=== PATIENT | male | born 1970 | race Asian ===

== ENCOUNTER 2023-12-01 12:05 | Outpatient (CLI) | payer MEDICAID ==
[~2023-12-01 12:05] MED LIST: CALC625T68 PO; HAL1T PO; HALO5TAB PO; IBUP-1984 PO; OLAN10TA3 PO; TOPI50TA PO; TRAZ-251 PO; TRAZ-91 PO
== END 2023-12-01 23:59 | disposition home or self-care (01) ==
LOC: RAD 12:05
PROVIDERS: ATTEND General Practice
DX: Z12.2 Encounter for screening for malignant neoplasm of respiratory organs (principal); R91.1 Solitary pulmonary nodule; J98.4 Other disorders of lung; F17.210 Nicotine dependence, cigarettes, uncomplicated
CPT/HCPCS: 71271

== ENCOUNTER 2024-02-11 06:48 | Day surgery (SDC) | payer MEDICAID ==
[~2024-02-11] VITALS: Ht 160 cm; Wt 69.8 kg
[2024-02-11] MEDS ORDERED: normal saline 1000ml 1,000 ML IV SCH (07:05)
[2024-02-11 07:45] VITALS: BP 125/70; PULSE 60; RESP 16; TEMP 97.5; O2SAT 98
[2024-02-11] MEDS ORDERED: ATOR10TA70 PO (07:54)
[2024-02-11] MEDS ORDERED: OLAN5TAB75 (07:54)
[2024-02-11] MEDS ORDERED: OLAN15TA35 PO (07:54)
[2024-02-11] MEDS ORDERED: TRAZ150T78 PO (07:54)
[2024-02-11 08:09] LABS: BASOPHILS # (AUTO) 0.1 X10'3 (0-0.2); BASOPHILS % (AUTO) 0.6 % (0-1); EOSINOPHILS # (AUTO) 0.1 X10'3 (0-0.9); EOSINOPHILS % (AUTO) 0.9 % (0-6); HEMATOCRIT 45.4 % (42.0-52.0); HEMOGLOBIN 15.1 g/dl (14.0-17.9); LYMPHOCYTES % (AUTO) 23.3 % (21-51); MEAN CORPUSCULAR HEMOGLOBIN 29.5 PG (27.0-31.0); MEAN CORPUSCULAR HGB CONC 33.4 g/dL (33.0-36.5); MEAN CORPUSCULAR VOLUME 88.5 FL (78-98); MEAN PLATELET VOLUME 8.2 FL (7.4-10.4); MONOCYTES # (AUTO) 0.7 X10'3 (0-0.9); MONOCYTES % (AUTO) 8.5 % (2-12); NEUTROPHILS # (AUTO) 5.7 X10'3 (1.8-7.7); NEUTROPHILS % (AUTO) 66.7 % (42-75); PLATELET COUNT 229 X10'3 (140-440); RED BLOOD COUNT 5.13 X10'6 (4.70-6.10); RED CELL DISTRIBUTION WIDTH 13.5 % (11.5-14.5); WHITE BLOOD COUNT 8.6 X10'3 (4.5-11.0)
[2024-02-11 08:16] LABS: APTT 31 SECONDS (22-32); PROTHROMBIN TIME 10.8 SECONDS (9.0-12.0)
== END 2024-02-11 08:45 | disposition home or self-care (01) ==
LOC: SSTAY O 06:48
PROVIDERS: ATTEND Radiology Diagnostic Radiology
DX: R91.1 Solitary pulmonary nodule (principal); Z53.8 Procedure and treatment not carried out for other reasons; E78.5 Hyperlipidemia, unspecified
CPT/HCPCS: 36415; 85025; 85610; 85730; J7030

== ENCOUNTER 2024-05-09 07:48 | Emergency (ER) | payer MEDICAID ==
[~2024-05-09] VITALS: Ht 170.2 cm; Wt 68.2 kg
[~2024-05-09 07:48] MED LIST changes: +ATOR10TA70 PO; -CALC625T68 PO; -HAL1T PO; -HALO5TAB PO; -IBUP-1984 PO; -OLAN10TA3 PO; +OLAN15TA35 PO; +OLAN5TAB75; -TOPI50TA PO; -TRAZ-251 PO; -TRAZ-91 PO; +TRAZ150T78 PO
[2024-05-09] MEDS: OLANZapine **IM** 10 mg inj. IM ONE (11:10)
[2024-05-09 13:23] LABS: BASOPHILS % (AUTO) 0.3 % (0-1); EOSINOPHILS # (AUTO) 0.1 X10'3 (0-0.9); EOSINOPHILS % (AUTO) 0.6 % (0-6); HEMATOCRIT 44.9 % (42.0-52.0); HEMOGLOBIN 15.1 g/dl (14.0-17.9); LYMPHOCYTES % (AUTO) 24.4 % (21-51); MEAN CORPUSCULAR HEMOGLOBIN 29.3 PG (27.0-31.0); MEAN CORPUSCULAR HGB CONC 33.8 g/dL (33.0-36.5); MEAN CORPUSCULAR VOLUME 86.7 FL (78-98); MEAN PLATELET VOLUME 7.6 FL (7.4-10.4); MONOCYTES % (AUTO) 8.2 % (2-12); NEUTROPHILS # (AUTO) 8.1 X10'3 (1.8-7.7); NEUTROPHILS % (AUTO) 66.5 % (42-75); PLATELET COUNT 264 X10'3 (140-440); RED BLOOD COUNT 5.17 X10'6 (4.70-6.10); RED CELL DISTRIBUTION WIDTH 12.5 % (11.5-14.5); WHITE BLOOD COUNT 12.3 X10'3 (4.5-11.0)
[2024-05-09 13:33] LABS: ALANINE AMINOTRANSFERASE 22 U/L (12-78); ALBUMIN 3.9 G/DL (3.4-5.0); ALKALINE PHOSPHATASE 62 IU/L (46-116); ANION GAP 5 (8-16); ASPARTATE AMINO TRANSFERASE 22 U/L (10-37); BILIRUBIN,TOTAL 0.6 MG/DL (0.1-1.0); BLOOD UREA NITROGEN 13 MG/DL (7-18); BUN/CREATININE RATIO 10.8 (10.0-20.0); CALCIUM 8.8 MG/DL (8.5-10.1); CHLORIDE 107 MMOL/L (99-107); GLUCOSE 88 MG/DL (70-104); POTASSIUM 3.8 MMOL/L (3.5-5.1); SODIUM 143 MMOL/L (135-145); TOTAL CARBON DIOXIDE 31.1 MMOL/L (24-32); TOTAL PROTEIN 7.8 G/DL (6.4-8.2); eCRCL 65 ML/MIN; eGFR 63 ML/MIN
[2024-05-09 13:42] LABS: ETHANOL < 10 MG/DL (<10); THYROID STIMULATING HORMONE 1.66 ulU/ml (0.34-4.50)
[2024-05-09 16:40] LABS: BILIRUBIN,URINE NEGATIVE (Neg); CLARITY,URINE SLIGHTLY CLOUDY (Clear); COLOR,URINE YELLOW (Yellow); GLUCOSE, URINE NEGATIVE (Neg); KETONES,URINE TRACE mg/dl (Neg); LEUKOCYTE ESTERASE ,URINE NEGATIVE (Neg); NITRITES, URINE NEGATIVE (Neg); OCCULT BLOOD,URINE NEGATIVE (Neg); PROTEIN,URINE NEGATIVE (Neg); UROBILINOGEN,URINE 0.2 E.U/dL (0.2-1.0)
[2024-05-09 16:41] LABS: UA COLLECTION TYPE CLN CATCH MIDSTREAM
[2024-05-09 16:44] LABS: URINE AMPHETAMINE SCREEN NEGATIVE (Neg); URINE BARBITUATE SCREEN NEGATIVE (Neg); URINE BENZODIAZEPINES SCREEN NEGATIVE (Neg); URINE CANNABINOID SCREEN POSITIVE (Neg); URINE COCAINE SCREEN NEGATIVE (Neg); URINE METHADONE SCREEN NEGATIVE (Neg); URINE OPIATE SCREEN NEGATIVE (Neg); URINE PHENCYCLIDINE SCREEN NEGATIVE (Neg)
[2024-05-09 16:48] LABS: AMORPHOUS URATES 1+; BACTERIA,URINE FEW /HPF (Neg); MUCUS STRANDS NONE SEEN /LPF (Neg); RBC,URINE 0-2 /HPF (0-2); SQUAMOUS EPITHELIAL CELL,UR FEW /LPF (FEW); WBC,URINE NONE SEEN /HPF (0-4)
[2024-05-09] MEDS: haloperidol lactate 5mg/ml inj IM ONE (17:49)
[2024-05-09] MEDS: LORazepam 2 mg/ml vial IM ONE (17:49)
[2024-05-09] MEDS: diphenhydrAMINE 50 mg/ml inj IM ONE (17:50)
[2024-05-09] MEDS: olanzapine 10mg tablet PO SCH (21:00)
[2024-05-09] MEDS: traZODone 150mg tablet PO SCH (21:00)
[2024-05-10] MEDS: atorvastatin 10mg tablet PO SCH (08:28)
[2024-05-10] MEDS: OLANZAPINE 5 MG TABLET PO PRN (08:28)
[2024-05-10] MEDS: LORazepam 2 mg/ml vial IM ONE (12:48)
[2024-05-10] MEDS: haloperidol lactate 5mg/ml inj IM ONE (12:48)
[2024-05-10] MEDS: diphenhydrAMINE 50 mg/ml inj IM ONE (12:49)
[2024-05-11] MEDS: LORazepam 2 mg/ml vial IM ONE (05:22)
[2024-05-11] MEDS: diphenhydrAMINE 50 mg/ml inj IM ONE (05:22)
[2024-05-11] MEDS ORDERED: diphenhydrAMINE 50 mg/ml inj IM PRN (12:15)
[2024-05-11] MEDS ORDERED: haloperidol lactate 5mg/ml inj IM PRN (12:15)
[2024-05-11] MEDS ORDERED: LORazepam 2 mg/ml vial IM PRN (12:15)
[2024-05-11 14:53] VITALS: BP 118/82; PULSE 72; RESP 16; TEMP 97.9; O2SAT 98
== END 2024-05-11 14:55 | disposition home or self-care (01) ==
LOC: ER 07:49
DX: F20.9 Schizophrenia, unspecified (principal); R41.82 Altered mental status, unspecified; Z79.899 Other long term (current) drug therapy; Z59.00 Homelessness unspecified; Z56.0 Unemployment, unspecified; Z20.822 Contact with and (suspected) exposure to COVID-19
CPT/HCPCS: 36415; 70450; 80053; 80305; 80320; 81001; 84443; 85025; 87811; 96372; 99285; J1200; J1630; J2060; J3490; A4421

== ENCOUNTER 2024-07-04 09:30 | Emergency (ER) | payer MEDICAID ==
[~2024-07-04] VITALS: Ht 167.6 cm; Wt 71.4 kg
[~2024-07-04 09:30] MED LIST changes: -OLAN15TA35 PO; +OLAN15TA97 PO
[2024-07-04 09:33] VITALS: BP 124/78; PULSE 89; RESP 18; O2SAT 98
[2024-07-04 10:24] VITALS: TEMP 98.1
== END 2024-07-04 10:26 | disposition home or self-care (01) ==
LOC: ER 09:30
DX: Z93.3 Colostomy status (principal); Z76.0 Encounter for issue of repeat prescription; I10 Essential (primary) hypertension; E11.9 Type 2 diabetes mellitus without complications; F20.9 Schizophrenia, unspecified; Z90.49 Acquired absence of other specified parts of digestive tract; Z91.148 Patient's other noncompliance with medication regimen for other reason
CPT/HCPCS: 99281; A4398; A4421

== ENCOUNTER 2025-01-22 13:31 | Emergency (ER) | payer MEDICAID ==
[~2025-01-22] VITALS: Ht 172.7 cm; Wt 54.0 kg
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
[2025-01-22 15:07] LABS: MEAN PLATELET VOLUME 8.1 FL (7.4-10.4); RED CELL DISTRIBUTION WIDTH 12.7 % (11.5-14.5)
[2025-01-22 15:15] LABS: CREATININE 1.07 MG/DL (0.60-1.10); ETHANOL < 10 MG/DL (<10); TOTAL CARBON DIOXIDE 24.4 MMOL/L (24-32); eCRCL 59 ML/MIN; eGFR 71 ML/MIN
[2025-01-22] MEDS ORDERED: iohexol 300mg/ml 100ml inj. ONE (15:22)
--- NOTE | 2025-01-22 16:28 | RADIOLOGY REPORT ---
Exam: CT CT ABDOMEN PELVIS W/ IV CONTRAST History: LLQ Abd Pain COMPARISON: None Technique: Multidetector spiral CT of the abdomen and pelvis was performed from lung bases to pubic symphysis. Intravenous contrast was administered during this examination. Portal venous imaging was obtained. Axial, coronal and sagittal multiplanar reformats were performed by the technologist on a separate workstation. Radiation Dose : Abdomen/Pelvis: CTDIvol 7 mGy, DLP 362 mGy*cm. CONTRAST: Type of contrast: Omni 300 Contrast injected: 100 mL Findings: Lung Bases: Mild airspace disease in the visualized left lower lung. Liver: The liver is normal in size. No focal lesions. Normal hepatic vascular enhancement. Gallbladder and biliary Tree: Unremarkable Spleen: Unremarkable Pancreas: The pancreas is normal in appearance without focal lesions or abnormal enhancement. Adrenal Glands: Unremarkable Kidneys: Subcentimeter left renal cyst. No hydronephrosis. Bladder: Unremarkable Bowel: The stomach is grossly normal in appearance. Postsurgical changes in the bowel with a right lo wer quadrant colostomy. Round radiopaque density in the rectum could represent retained foreign body. The appendix is not visualized; however, no secondary findings of acute appendicitis identified. Ascites: Absent Lymphadenopathy: No mesenteric, retroperitoneal or periportal lymphadenopathy. Abdominal wall and Mesentery: Right lower quadrant colostomy as above. Vasculature: The visualized abdominal aorta is normal in size and caliber. Abdominal and pelvic vess els demonstrate normal enhancement. Pelvic Organs: Unremarkable Musculoskeletal: No aggressive focal bony lesions, acute fractures or dislocation. IMPRESSION: 1. No acute abdominal or pelvic finding. Round radiopaque foreign body in the rectum. Postsurgical ch anges with a right lower quadrant colostomy. Subcentimeter left renal cyst. Mild airspace disease in the visualized left lower lung. Consider dedicated chest CT. Radiation optimization: All CT scans at this facility use at least one of these dose optimization wali hniques: Automated exposure control mA and/or kV adjustment per patient size (includes targeted exams where dose is matched to clinical indication) or iterative reconstruction. HS:Y
[2025-01-22 17:50] LABS: LEUKOCYTE ESTERASE ,URINE NEGATIVE (Neg); NITRITES, URINE NEGATIVE (Neg); OCCULT BLOOD,URINE NEGATIVE (Neg)
[2025-01-22 17:54] LABS: UA COLLECTION TYPE URINAL
[2025-01-22 17:58] LABS: URINE AMPHETAMINE SCREEN POSITIVE (Neg); URINE BARBITUATE SCREEN NEGATIVE (Neg); URINE BENZODIAZEPINES SCREEN NEGATIVE (Neg); URINE COCAINE SCREEN NEGATIVE (Neg); URINE METHADONE SCREEN NEGATIVE (Neg); URINE OPIATE SCREEN NEGATIVE (Neg); URINE PHENCYCLIDINE SCREEN NEGATIVE (Neg)
[2025-01-22] MEDS ORDERED: UNABLE TO OBTAIN (18:05)
[2025-01-22] MEDS: haloperidol lactate 5mg/ml inj IM ONE (23:27)
[2025-01-23] MEDS: OLANZapine 5mg rapidly disint. tablet PO ONE (18:18)
[2025-01-23] MEDS: nicotine 21mg patch - 24 hr TD ONE (18:18)
[2025-01-24] MEDS: OLANZAPINE 5 MG TABLET PO PRN (08:39)
[2025-01-24] MEDS ORDERED: CHLO10TA18 PO (13:43)
[2025-01-24] MEDS: OLANZAPINE 5 MG TABLET PO SCH ×2 (14:37→20:08)
[2025-01-24] MEDS: nicotine 21mg patch - 24 hr TD ONE (18:45)
[2025-01-25 15:02] VITALS: BP 110/73; PULSE 83; RESP 18; TEMP 97.4; O2SAT 98
== END 2025-01-25 14:35 | disposition home or self-care (01) ==
LOC: ER 13:31
DX: F20.0 Paranoid schizophrenia (principal); Z73.6 Limitation of activities due to disability; Z79.899 Other long term (current) drug therapy; Z56.0 Unemployment, unspecified; Z59.00 Homelessness unspecified; Z90.49 Acquired absence of other specified parts of digestive tract
CPT/HCPCS: 36415; 74177; 80053; 80305; 80320; 81003; 83690; 84443; 85025; 87811; 96372; 99285; J1200; J1630; J2060; Q9967; Q0161

== ENCOUNTER 2025-02-06 08:00 | Emergency (ER) | payer MEDICAID ==
[~2025-02-06] VITALS: Ht 167.6 cm; Wt 66.0 kg
[~2025-02-06 08:00] MED LIST changes: +CHLO10TA18 PO
[2025-02-06 08:08] VITALS: BP 116/68; PULSE 98; RESP 16; TEMP 97.1; O2SAT 96
--- NOTE | 2025-02-06 09:32 | Physician Documentation ---
History of Present Illness ~ General Chief Complaint: See Chief Complaint Stated Complaint: COLOSAMY BAG ISSUE Time Seen by MD: 09:29 Primary Medical Doctor: feliz valle History of Present Illness Initial Comments patient here for colostomy supplies. no issues or complaints Medication Reconciliation Allergies: Coded Allergies: No Known Allergies (Unverified , 01/22/25) Scheduled Atorvastatin Calcium (Atorvastatin Calcium), 1 TAB PO DAILY, (Reported) Chlorpromazine Hcl* (Thorazine*), 2.5 TAB PO DAILY, (Reported) Olanzapine (Olanzapine), 1 TAB PO HS, (Reported) Trazodone Hcl (Trazodone Hcl), 1 TAB PO HS, (Reported) Scheduled PRN Olanzapine (Olanzapine), 1 TAB TID PRN for for anxiety/agitation, (Reported) Past Medical History Past Medical History: *GI/HEPATOBILIARY*, Diverticulitis, Schizophrenia Past Surgical History: colectomy, other Other Past Surgical History: colostomy Alcohol Use: None Drug Use: none Lives In: Homeless Occupation: unemployed Physical Exam Physical Exam Vital Signs: Temperature: 97.1, Heart Rate: 98, Respiratory Rate: 16, BP: 116/68, Pulse Oximetry: 96, Weight: 66.000 Oxygen Flow Rate: 0 General Appearance: no apparent distress Gastrointestinal: normal palpation Neurologic: oriented x4 Progress Results/Orders Reviewed/noted all lab results: Yes Results/Orders Vital Signs 02/06/25 08:08 Temp 97.1 Pulse 98 Resp 16 B/P (MAP) 116/68 Pulse Ox 96 O2 Flow Rate 0 Medical Decision Making Additional info obtained from: old records Findings 2013 operative report Departure Disposition: HOME / SELF CARE / HOMELESS Impression: Primary Impression: Colostomy care Referrals: NO PRIMARY CARE PROVIDER (PCP) Signature Scribe Signature: na Attestation: YOANA Briscoe MD Feb 06, 2025 09:32
== END 2025-02-06 09:30 | disposition home or self-care (01) ==
LOC: ER 08:01
DX: Z43.3 Encounter for attention to colostomy (principal); F20.9 Schizophrenia, unspecified; Z90.49 Acquired absence of other specified parts of digestive tract
CPT/HCPCS: 99281; A4421

== ENCOUNTER 2025-02-09 00:15 | Emergency (ER) | payer MEDICAID ==
[~2025-02-09] VITALS: Ht 167.6 cm; Wt 55.6 kg
[2025-02-09 00:23] VITALS: BP 135/95; PULSE 110; RESP 16; TEMP 98.2; O2SAT 97
--- NOTE | 2025-02-09 00:46 | Physician Documentation ---
History of Present Illness ~ General Chief Complaint: General Stated Complaint: OSTOMY COMPLICATIONS Time Seen by MD: 00:45 Primary Medical Doctor: feliz valle History of Present Illness Initial Comments Patient presents to the emergency room for problems with his colostomy bag. The adhesive is not adhering to his abdomen very well. Stoma is functioning n ormally. Medication Reconciliation Allergies: Coded Allergies: No Known Allergies (Unverified , 01/22/25) Scheduled Atorvastatin Calcium (Atorvastatin Calcium), 1 TAB PO DAILY, (Reported) Chlorpromazine Hcl* (Thorazine*), 2.5 TAB PO DAILY, (Reported) Olanzapine (Olanzapine), 1 TAB PO HS, (Reported) Trazodone Hcl (Trazodone Hcl), 1 TAB PO HS, (Reported) Scheduled PRN Olanzapine (Olanzapine), 1 TAB TID PRN for for anxiety/agitation, (Reported) Past Medical History Past Medical History: *GI/HEPATOBILIARY*, Diverticulitis, Schizophrenia Past Surgical History: colectomy, other Other Past Surgical History: colostomy Alcohol Use: None Drug Use: none Lives In: Homeless Occupation: unemployed Review of Systems ROS All review of systems negative except as per HPI Physical Exam Physical Exam Vital Signs: Temperature: 98.2, Source: Temporal, Heart Rate: 110, Respiratory Rate: 16, BP: 135/95, Pulse Oximetry: 97, Weight: 55.600 Oxygen Flow Rate: 0 Physical Exam General: Patient is awake, alert, oriented x4 in no acute distress Eyes: Conjunctival normal. EOMI. PERRL. ENT: Mucous membranes moist. Neck: Supple, trachea is midline. Chest: Clear to auscultation bilaterally without rales, rhonchi, or wheezes. There is no accessory muscle use or retractions. Cardiac: RRR without murmurs, gallops, or rubs. Abd: Soft, nondistended, nontender, ostomy noted in right-sided abdomen func tioning normally. Colostomy bag having problems that he is in to the top left side. Progress Results/Orders Results/Orders Vital Signs 02/09/25 00:23 Temp 98.2 Pulse 110 Resp 16 B/P (MAP) 135/95 Pulse Ox 97 O2 Flow Rate 0 Medical Decision Making Findings Patient presents to the emergency room for colostomy supplies. He had not feel emergent labs or imaging is necessary Departure Disposition: 01 HOME / SELF CARE / HOMELESS Impression: Primary Impression: Colostomy care Condition: Stable Discharge Instructions: Colostomy Home Guide, Adult Referrals: NO PRIMARY CARE PROVIDER (PCP) Education Educated: Patient Signature Scribe Signature: No scribe Attestation: The note accurately reflects work and decisions made by me.Billy Lao MD 02/09/25 00:51 BILLY LAO MD Feb 09, 2025 00:46
== END 2025-02-09 01:16 | disposition home or self-care (01) ==
LOC: ER 00:16
DX: Z93.3 Colostomy status (principal); F20.9 Schizophrenia, unspecified; Z90.49 Acquired absence of other specified parts of digestive tract; Z79.899 Other long term (current) drug therapy; Z56.0 Unemployment, unspecified; Z59.00 Homelessness unspecified
CPT/HCPCS: 99281; A4371; A4421

== ENCOUNTER 2025-05-24 23:55 | Emergency (ER) | payer MEDICAID ==
[~2025-05-24] VITALS: Ht 170.2 cm; Wt 68.2 kg
--- NOTE | 2025-05-25 01:07 | Physician Documentation ---
History of Present Illness ~ General Chief Complaint: See Chief Complaint Stated Complaint: COLOSTOMY BAG Time Seen by MD: 00:55 Primary Medical Doctor: feliz valle History of Present Illness Initial Comments Patient presents to the emergency room requesting colostomy bag. No other complaints. Colostomy working appropriately Medication Reconciliation Allergies: Coded Allergies: No Known Allergies (Unverified , 01/22/25) Scheduled Atorvastatin Calcium (Atorvastatin Calcium), 1 TAB PO DAILY, (Reported) Chlorpromazine Hcl* (Thorazine*), 2.5 TAB PO DAILY, (Reported) Olanzapine (Olanzapine), 1 TAB PO HS, (Reported) Trazodone Hcl (Trazodone Hcl), 1 TAB PO HS, (Reported) Scheduled PRN Olanzapine (Olanzapine), 1 TAB TID PRN for for anxiety/agitation, (Reported) Past Medical History Past Medical History: *GI/HEPATOBILIARY*, Diverticulitis, Schizophrenia Past Surgical History: colectomy, other Other Past Surgical History: colostomy Alcohol Use: None Drug Use: none Lives In: Homeless Occupation: unemployed Review of Systems ROS All review of systems negative except as per HPI Physical Exam Physical Exam Vital Signs: Temperature: 98.0, Heart Rate: 106, Respiratory Rate: 16, BP: 109/53, Pulse Oximetry: 100, Weight: 68.180 Oxygen Flow Rate: 0 Physical Exam General: Patient is sleeping, easily arousable in no acute distress Head: Normocephalic and atraumatic. Eyes: Conjunctival normal. EOMI. PERRL. ENT: Mucous membranes moist. Neck: Supple, trachea is midline. Chest: Clear to auscultation bilaterally without rales, rhonchi, or wheezes. There is no accessory muscle use or retractions. Cardiac: RRR without murmurs, gallops, or rubs. Abd: Soft, nondistended, nontender, colostomy bag noted Progress Results/Orders Results/Orders Vital Signs 05/25/25 00:02 Temp 98.0 Pulse 106 Resp 16 B/P (MAP) 109/53 Pulse Ox 100 O2 Flow Rate 0 Medical Decision Making Additional information obtaine: old records Findings 1 Differential Diagnosis Patient presented to the emergency room requesting colostomy bag. Differentials include but are not limited to malingering, homelessness, medication refill, small-bowel obstruction. Patient's ostomy is working correctly and he had not feel patient requires emergent labs or imaging. Departure Disposition: HOME / SELF CARE / HOMELESS Impression: Primary Impression: Colostomy care Condition: Stable Discharge Instructions: Colostomy Home Guide, Adult Referrals: NO PRIMARY CARE PROVIDER (PCP) Signature Scribe Signature: No scribe Attestation: The note accurately reflects work and decisions made by me.Billy Lao MD 05/25/25 01:06 BILLY LAO MD May 25, 2025 01:07
[2025-05-25 01:25] VITALS: BP 110/50; PULSE 99; RESP 18; TEMP 98.6; O2SAT 99
[2025-05-25] MEDS ORDERED: OLAN15TA20 PO (21:54)
== END 2025-05-25 01:26 | disposition home or self-care (01) ==
LOC: ER 23:56
DX: Z43.3 Encounter for attention to colostomy (principal); F20.9 Schizophrenia, unspecified; Z90.49 Acquired absence of other specified parts of digestive tract
CPT/HCPCS: 99282; A4421

== ENCOUNTER 2025-05-25 16:31 | Emergency (ER) | payer MEDICAID ==
[~2025-05-25] VITALS: Ht 170.2 cm; Wt 68.2 kg
[2025-05-25 16:32] VITALS: PULSE 118; RESP 16; TEMP 98; O2SAT 98
[2025-05-25] MEDS ORDERED: OLAN15TA20 PO (21:54)
--- NOTE | 2025-05-25 21:54 | Physician Documentation ---
HPI ~ General Chief Complaint: Medication Request Stated Complaint: OSTOMY SUPPLIES Time Seen by MD: 21:21 Primary Medical Doctor: feliz valle History of Present Illness HPI Comments Is a very pleasant 55-year-old male that presents to the emergency department for refill of his olanzapine. Patient denies any symptoms or any need for treatment at this time. Medication Reconciliation Allergies: Coded Allergies: No Known Allergies (Unverified , 01/22/25) Scheduled Atorvastatin Calcium (Atorvastatin Calcium), 1 TAB PO DAILY, (Reported) Chlorpromazine Hcl* (Thorazine*), 2.5 TAB PO DAILY, (Reported) Olanzapine (Olanzapine), 1 TAB PO HS, (Reported) Olanzapine (Olanzapine), 1 TAB PO HS Trazodone Hcl (Trazodone Hcl), 1 TAB PO HS, (Reported) Scheduled PRN Olanzapine (Olanzapine), 1 TAB TID PRN for for anxiety/agitation, (Reported) Past Medical History Past Medical History: *GI/HEPATOBILIARY*, Diverticulitis, Schizophrenia Past Surgical History: colectomy, other Other Past Surgical History: colostomy Alcohol Use: None Drug Use: none Lives In: Homeless Occupation: unemployed Review of Systems ROS As stated above in the HPI, otherwise all systems are reviewed and negative. Constitutional: Reports: no symptoms reported, see HPI, chills, diaphoresis, f ever, malaise, weakness, other Eyes: Reports: no symptoms reported, see HPI, pain, discharge, blurred vision, double vision, itching, photophobia, redness, tearing, other ENT: Reports: no symptoms reported, see HPI, ear pain, ear bleeding, ear discharge, hearing loss, ear ringing, nose pain, nose bleeding, nose congestion, nose discharge, throat pain, throat swelling, voice change, mouth pain, mouth bleeding, mouth swelling, other Respiratory: Reports: no symptoms reported, see HPI, cough, orthopnea, shortness of breath, SOB with exertion, SOB at rest, stridor, wheezing, hemoptysis, pain with breathing, other Cardiovascular: Reports: no symptoms reported, see HPI, chest pain, left arm pain, diaphoresis, lightheadedness, syncope, edema, palpitations, irregular heart rate, other Gastrointestinal: Reports: no symptoms reported, see HPI, abdomen distended, abdominal pain, nausea, vomiting, diarrhea, constipated, melena, hematemesis, hematochezia, rectal bleeding, rectal pain, dysphagia, poor appetite, poor fluid intake, other Male Genitalia: Reports: no symptoms reported, see HPI, penile discharge, penile sore, testicular pain, testicular swelling, other Physical Exam Physical Exam Vital Signs: Temperature: 98.0, Source: Temporal, Heart Rate: 118, Respiratory Rate: 16, Pulse Oximetry: 98, Weight: 68.180 Oxygen Flow Rate: 0 Physical Exam VITALS: Reviewed and as above. GENERAL: Alert, no apparent distress. HEENT: Normocephalic, atraumatic, PERRL, EOMI, dry mucosa, no erythema RESPIRATORY: Lungs clear, normal breath sounds, no respiratory distress. CHEST: No accessory muscle use, no retractions CV: Regular rate, rhythm, no edema, no murmur, No: JVD GI: Soft, non-tender, bowels sounds present, no rebound, guarding, or rigidity BACK: No CVA tenderness, or swelling MUSCULOSKELETAL No deformities, no edema SKIN: Warm and dry, no rash NEURO: Oriented x4, No motor or sensory deficit PSYCH: Normal mood and affect, no agitation Progress Results/Orders Results/Orders Completed Orders - SEMAJ MERCADO Olanzapine Tablet (Zyprexa Tablet) (05/25/25 21:55) Olanzapine Tablet (Zyprexa Tablet) (05/25/25 21:55) Medications Received in ER Medications (Trade) Dose Ordered Sig/Gloria Route PRN Reason Start Time Stop Time Status Last Admin Dose Admin (ZyPREXA tablet) 5 mg DAILY PO 05/25/25 21:55 05/25/25 22:22 DC 05/25/25 22:04 5 MG (ZyPREXA tablet) 10 mg DAILY PO 05/25/25 21:55 05/25/25 22:22 DC 05/25/25 22:05 10 MG Vital Signs 05/25/25 16:32 Temp 98.0 Pulse 118 Resp 16 Pulse Ox 98 O2 Flow Rate 0 Medical Decision Making Additional information obtaine: other Findings Patient is here for medication refill. Patient's olanzapine was refilled. Patient will follow up with his primary care provider patient will return to the emergency department if he has any additional needs or medical concerns. Differential Dx:Considerations: Include: Adverse circumstances, Economic, Psychosocial, Medical services unavail., Medication refill, Medication non- compliance, Other Departure Disposition: HOME / SELF CARE / HOMELESS Impression: Primary Impression: General medical exam Additional Impression: Medication refill Discharge Instructions: Medicine Refill at the Emergency Department Additional Instructions: Seen here in the emergency department for refill of his medications. Patient's medications were refilled education was provided patient will follow up with his primary care provider patient will return to the emergency department with any additional needs. Provided with an ostomy bag. Referrals: NO PRIMARY CARE PROVIDER (PCP) Prescriptions Olanzapine (Olanzapine) 15 Mg Tab.rapdis 1 TAB PO HS for 30 Days, #30 TAB 0 Refills Prov: SEMAJ MERCADO 05/25/25 Education Educated: Patient Educated regarding: diagnosis, treatment, need for follow up Signature Scribe Signature: A Attestation: Scribed for Semaj Mercado by KENNETH Pacheco . 05/25/25 23:01 SEMAJ MERCADO May 25, 2025 21:54
== END 2025-05-25 22:22 | disposition home or self-care (01) ==
LOC: ER 16:32
DX: Z00.00 Encounter for general adult medical examination without abnormal findings (principal); F20.9 Schizophrenia, unspecified; Z76.0 Encounter for issue of repeat prescription; Z90.49 Acquired absence of other specified parts of digestive tract; Z93.3 Colostomy status; Z79.899 Other long term (current) drug therapy; Z56.0 Unemployment, unspecified; Z59.00 Homelessness unspecified
CPT/HCPCS: 99283; A4421

== ENCOUNTER 2025-05-26 04:37 | Emergency (ER) | payer MEDICAID ==
[~2025-05-26] VITALS: Ht 170.2 cm; Wt 68.0 kg
[~2025-05-26 04:37] MED LIST changes: +OLAN15TA20 PO
--- NOTE | 2025-05-26 04:44 | Physician Documentation ---
History of Present Illness ~ General Stated Complaint: COLOSTOMY COMPLICATIONS Time Seen by MD: 04:40 Primary Medical Doctor: feliz valle History of Present Illness Initial Comments here because he can't seem to figure out his colostomy bags that he just got. History of frequent ER visits for the same Medication Reconciliation Allergies: Coded Allergies: No Known Allergies (Unverified , 01/22/25) Scheduled Atorvastatin Calcium (Atorvastatin Calcium), 1 TAB PO DAILY, (Reported) Chlorpromazine Hcl* (Thorazine*), 2.5 TAB PO DAILY, (Reported) Olanzapine (Olanzapine), 1 TAB PO HS, (Reported) Olanzapine (Olanzapine), 1 TAB PO HS Trazodone Hcl (Trazodone Hcl), 1 TAB PO HS, (Reported) Scheduled PRN Olanzapine (Olanzapine), 1 TAB TID PRN for for anxiety/agitation, (Reported) Past Medical History Past Medical History: *GI/HEPATOBILIARY*, Diverticulitis, Schizophrenia Past Surgical History: colectomy, other Other Past Surgical History: colostomy Alcohol Use: None Drug Use: none Lives In: Homeless Occupation: unemployed Review of Systems All Other Systems at this time: Reviewed and Negative Physical Exam Physical Exam Physical Exam General: Patient is awake, alert, oriented x4 in no acute distress Head: Normocephalic and atraumatic. Eyes: Conjunctival normal. EOMI. PERRL. ENT: Mucous membranes moist. Neck: Supple, trachea is midline. Chest: Clear to auscultation bilaterally without rales, rhonchi, or wheezes. There is no accessory muscle use or retractions. Cardiac: RRR without murmurs, gallops, or rubs. Abd: colostomy appears functional Progress Results/Orders Results/Orders Vital Signs 05/26/25 05/26/25 05:02 05:12 Temp 97.7 97.7 Pulse 75 Resp 16 B/P (MAP) 110/73 Pulse Ox 98 Medical Decision Making Additional information obtaine: old records Findings we helped him Differential Diagnosis n Departure Disposition: HOME / SELF CARE / HOMELESS Impression: Primary Impression: Colostomy care Condition: Stable Discharge Instructions: Colostomy Home Guide, Adult Additional Instructions: you are 55 years old. You are an adult and need to take care of yourself. Referrals: NO PRIMARY CARE PROVIDER (PCP) Signature Scribe Signature: n Attestation: The note accurately reflects work and decisions made by me.Billy Lao MD 05/26/25 04:44 BILLY LAO MD May 26, 2025 04:44
[2025-05-26 05:02] VITALS: BP 110/73; PULSE 75; RESP 16; O2SAT 98
[2025-05-26 05:12] VITALS: TEMP 97.7
== END 2025-05-26 05:15 | disposition home or self-care (01) ==
LOC: ER 04:38
DX: Z93.3 Colostomy status (principal); F20.9 Schizophrenia, unspecified; Z90.49 Acquired absence of other specified parts of digestive tract
CPT/HCPCS: 99282; A4371; A4421

== ENCOUNTER 2025-05-29 00:08 | Emergency (ER) | payer MEDICAID ==
[~2025-05-29] VITALS: Ht 170.2 cm; Wt 65.0 kg
--- NOTE | 2025-05-29 03:16 | Physician Documentation ---
History of Present Illness General Chief Complaint: Abdominal Pain Stated Complaint: COLOSTOMY ISSUES Time Seen by MD: 03:16 Primary Medical Doctor: Unknown History of Present Illness Initial Comments The patient is a 55-year-old male who complains of a leaking right-sided colostomy bag. The patient states he has no replacement bag available to him. Patient denies any fevers chills nausea vomiting diarrhea. Medication Reconciliation Allergies: Coded Allergies: No Known Allergies (Unverified , 01/22/25) Scheduled Atorvastatin Calcium (Atorvastatin Calcium), 1 TAB PO DAILY, (Reported) Chlorpromazine Hcl* (Thorazine*), 2.5 TAB PO DAILY, (Reported) Olanzapine (Olanzapine), 1 TAB PO HS, (Reported) Olanzapine (Olanzapine), 1 TAB PO HS Trazodone Hcl (Trazodone Hcl), 1 TAB PO HS, (Reported) Scheduled PRN Olanzapine (Olanzapine), 1 TAB TID PRN for for anxiety/agitation, (Reported) Past Medical History Past Medical History: *GI/HEPATOBILIARY*, Diverticulitis, Schizophrenia Past Surgical History: colectomy, other Other Past Surgical History: colostomy Alcohol Use: None Drug Use: none Lives In: Homeless Occupation: unemployed Review of Systems All Other Systems at this time: Reviewed and Negative Physical Exam Physical Exam Vital Signs: Temperature: 98.6, Source: Oral, Heart Rate: 86, Respiratory Rate: 16, BP: 120/73, Pulse Oximetry: 99, Weight: 65.000 General Appearance VITALS: Reviewed and as above. GENERAL: Alert, no apparent distress. HEENT: Normocephalic, atraumatic, PERRL, EOMI, dry mucosa, no erythema GI: Soft, non-tender, bowels sounds present, no rebound, guarding, or rigidity right-sided abdominal colostomy site is clean without any significant swelling or erythema BACK: No CVA tenderness, or swelling MUSCULOSKELETAL: No deformities, no edema SKIN: Warm and dry, no rash NEURO: Oriented x4, No motor or sensory deficit PSYCH: Normal mood and affect, no agitation Progress Results/Orders Results/Orders Vital Signs 05/29/25 00:47 Temp 98.6 Pulse 86 Resp 16 B/P (MAP) 120/73 Pulse Ox 99 Departure Time of Disposition: 03:19 Disposition: 01 HOME / SELF CARE / HOMELESS Impression: Primary Impression: Colostomy care Discharge Instructions: Colostomy Home Guide, Adult Referrals: NO PRIMARY CARE PROVIDER (PCP) KATIE MEDRANO MD May 29, 2025 03:16
[2025-05-29 03:36] VITALS: BP 120/72; PULSE 84; RESP 18; TEMP 98.6; O2SAT 99
== END 2025-05-29 03:36 | disposition home or self-care (01) ==
LOC: ER 00:09
DX: Z43.3 Encounter for attention to colostomy (principal); F20.9 Schizophrenia, unspecified; Z90.49 Acquired absence of other specified parts of digestive tract; Z79.899 Other long term (current) drug therapy; Z59.00 Homelessness unspecified; Z56.0 Unemployment, unspecified
CPT/HCPCS: 99282; A4421

== ENCOUNTER 2025-05-30 08:49 | Emergency (ER) | payer MEDICAID ==
[~2025-05-30] VITALS: Ht 170.2 cm; Wt 63.9 kg
--- NOTE | 2025-05-30 09:53 | Physician Documentation ---
History of Present Illness General Chief Complaint: Medication Request Stated Complaint: SUPPLIES Time Seen by MD: 09:11 Primary Medical Doctor: Unknown History of Present Illness Initial Comments 55-year-old male who presents to the emergency department requesting colostomy bag supplies. Reports that his bag is leaking. He has not established provider in [place] in his prescription has been sent yet it will be 1-2 weeks befor it is dispensed to him. Otherwise is without any emergent complaints. Medication Reconciliation Allergies: Coded Allergies: No Known Allergies (Unverified , 05/30/25) Scheduled Atorvastatin Calcium (Atorvastatin Calcium), 1 TAB PO DAILY, (Reported) Chlorpromazine Hcl* (Thorazine*), 2.5 TAB PO DAILY, (Reported) Olanzapine (Olanzapine), 1 TAB PO HS, (Reported) Olanzapine (Olanzapine), 1 TAB PO HS Trazodone Hcl (Trazodone Hcl), 1 TAB PO HS, (Reported) Scheduled PRN Olanzapine (Olanzapine), 1 TAB TID PRN for for anxiety/agitation, (Reported) Past Medical History Past Medical History: *GI/HEPATOBILIARY*, Diverticulitis, Schizophrenia Past Surgical History: colectomy, other Other Past Surgical History: colostomy Alcohol Use: None Drug Use: none Lives In: Homeless Occupation: unemployed Review of Systems All Other Systems at this time: Reviewed and Negative Constitutional: Denies: fever, chills Physical Exam Physical Exam Vital Signs: RN Vital Signs have been reviewed: Yes, Temperature: 97.2, Source: Temporal, Heart Rate: 90, Respiratory Rate: 16, BP: 120/92, Pulse Oximetry: 99, Weight: 63.900 Oxygen Flow Rate: 0 General Appearance: alert, WD/WN, no apparent distress Head: normal inspection Face: normal inspection Pupils/EOM/Fundus: PERRLA Respiratory: no respiratory distress Chest: no accessory muscle use Gastrointestinal Colostomy bag present with normal stool Psychiatric: normal mood/affect Skin: normal color Progress Results/Orders Results/Orders Vital Signs 05/30/25 08:53 Temp 97.2 Pulse 90 Resp 16 B/P (MAP) 120/92 Pulse Ox 99 O2 Flow Rate 0 Medical Decision Making Additional information obtaine: N/A Findings Medical screening exam provided for patient who is in need of colostomy supplies. Nursing staff to provide patient with colostomy supply. He understands to keep follow up appointments with his primary care physician. He does have scheduled prescription refill is pending. Differential Diagnosis Differentials include but not limited to: Prolapsed ostomy, cellulitis, obstruction Departure Disposition: 01 HOME / SELF CARE / HOMELESS Impression: Primary Impression: Colostomy care Condition: Stable Discharge Instructions: Medical Screening Exam Additional Instructions: Please keep all scheduled follow up appointment with your primary care physician for prescriptions. Please continue with your colostomy care. Thank you for visiting emergency department [facility]. Referrals: NO PRIMARY CARE PROVIDER (PCP) Education Educated: Patient Educated regarding: diagnosis, treatment, prognosis, need for follow up Signature Scribe Signature: . Attestation: . JING TAVERA PAC May 30, 2025 09:53
[2025-05-30 10:41] VITALS: BP 124/82; PULSE 100; RESP 16; TEMP 97.2; O2SAT 99
== END 2025-05-30 10:45 | disposition home or self-care (01) ==
LOC: ER 08:49
DX: Z43.3 Encounter for attention to colostomy (principal); F20.9 Schizophrenia, unspecified; Z90.49 Acquired absence of other specified parts of digestive tract; Z79.899 Other long term (current) drug therapy; Z56.0 Unemployment, unspecified; Z59.00 Homelessness unspecified
CPT/HCPCS: 99282; A4415

== ENCOUNTER 2025-06-04 17:28 | Emergency (ER) | payer MEDICAID ==
[~2025-06-04] VITALS: Ht 170.2 cm; Wt 63.6 kg
--- NOTE | 2025-06-04 18:06 | RADIOLOGY REPORT ---
Exam: DI ABDOMEN,SINGLE VIEW(KUB) Indication: ABD pain Comparison: CT CT ABDOMEN PELVIS W/ IV CONTRAST on DOS: 01/22/25 Technique: One radiographic views of the abdomen. Findings: There is a metallic density in the region of the lower pelvis. Multiple round radiopaque densities are noted along the mid to lower pelvis. No free air. Nonobstructive bowel gas pattern. No acute osseous abnormality Impression: Metallic density in the region of the lower pelvis. Foreign body is not excluded. Correlate clinically. CT may be helpful for further assessment
[2025-06-04 18:09] LABS: MEAN PLATELET VOLUME 7.7 FL (7.4-10.4); RED CELL DISTRIBUTION WIDTH 13.4 % (11.5-14.5)
[2025-06-04 18:24] LABS: CREATININE 0.89 MG/DL (0.60-1.10); TOTAL CARBON DIOXIDE 27.9 MMOL/L (24-32); eCRCL 83 ML/MIN; eGFR 88 ML/MIN
--- NOTE | 2025-06-04 22:47 | Physician Documentation ---
History of Present Illness Chief Complaint: Abdominal Pain Stated Complaint: ABD PAIN Time Seen by MD: 22:46 Primary Medical Doctor: Unknown HPI 55-year-old male, history of colostomy and schizophrenia, presenting with lower abdominal pain. The patient is a challenging historian. He tells me that he has been having lower abdominal pain for a couple of days. He reports a change in output to his colostomy bag. No vomiting. Later he tells me I put a rock in my rectum. No definite fevers or chills. He does report difficulty urinating. Medication Reconciliation Allergies: Coded Allergies: No Known Allergies (Unverified , 05/30/25) Scheduled Atorvastatin Calcium (Atorvastatin Calcium), 1 TAB PO DAILY, (Reported) Chlorpromazine Hcl* (Thorazine*), 2.5 TAB PO DAILY, (Reported) Olanzapine (Olanzapine), 1 TAB PO HS, (Reported) Olanzapine (Olanzapine), 1 TAB PO HS Trazodone Hcl (Trazodone Hcl), 1 TAB PO HS, (Reported) Scheduled PRN Olanzapine (Olanzapine), 1 TAB TID PRN for for anxiety/agitation, (Reported) Past Medical History Past Medical History: *GI/HEPATOBILIARY*, Diverticulitis, Schizophrenia Past Surgical History: colectomy, other Other Past Surgical History: colostomy Alcohol Use: None Drug Use: none Lives In: Homeless Occupation: unemployed Review of Systems Constitutional: Denies: fever Gastrointestinal: Reports: abdominal pain; Denies: vomiting, rectal bleeding Physical Exam Vital Signs: Temperature: 97.0, Source: Temporal, Heart Rate: 77, Respiratory Rate: 20, BP: 137/92, Pulse Oximetry: 96, Weight: 63.640 Oxygen Flow Rate: 0 Physical Exam General: This is a thin middle-aged man, not in distress HEENT: Atraumatic, oropharynx appears dry Heart: Regular rate and rhythm, normal-appearing peripheral perfusion Lungs: normal work of breathing, normal oxygen saturation on room air Abdomen: Soft, nondistended. Colostomy bag in place with greenish brown stool. Mild generalized discomfort on palpation across the lower abdomen, without rebound or guarding Neuro: Alert and oriented Psychiatric: Calm and cooperative with exam Progress Results/Orders Results/Orders Vital Signs 06/04/25 17:30 Temp 97.0 Pulse 77 Resp 20 B/P (MAP) 137/92 Pulse Ox 96 O2 Flow Rate 0 Laboratory Tests Test 06/04/25 17:56 White Blood Count 12.1 H Red Blood Count 4.85 Hemoglobin 14.4 Hematocrit 42.4 Mean Corpuscular Volume 87.4 Mean Corpuscular Hemoglobin 29.8 Mean Corpuscular Hemoglobin Concent 34.1 Red Cell Distribution Width 13.4 Platelet Count 272 Mean Platelet Volume 7.7 Neutrophils (%) (Auto) 79.9 H Lymphocytes (%) (Auto) 10.9 L Monocytes (%) (Auto) 8.5 Eosinophils (%) (Auto) 0.3 Basophils (%) (Auto) 0.4 Neutrophils # (Auto) 9.7 H Lymphocytes # (Auto) 1.3 Monocytes # (Auto) 1.0 H Eosinophils # (Auto) 0.0 Basophils # (Auto) 0.0 CBC Comment Sodium Level 138 Potassium Level 4.0 Chloride Level 102 Carbon Dioxide Level 27.9 Anion Gap 8 Blood Urea Nitrogen 9 Creatinine 0.89 Estimated GFR/1.73 m2 88 BUN/Creatinine Ratio 10.1 Glucose Level 77 Calcium Level 8.4 L Total Bilirubin 0.4 Aspartate Amino Transf (AST/SGOT) 17 Alanine Aminotransferase (ALT/SGPT) 24 Alkaline Phosphatase 72 Total Protein 7.6 Albumin 3.5 Globulin 4.1 Albumin/Globulin Ratio 0.9 L Lipase 16 Chemistry Comments Re-Evaluation Re-Evaluation #1: Re-Evaluation Time: 06:53 Progress Assumed care of patient at change of shift. Awaiting transfer for higher level of care (GI) for removal of FB, multiple, from sigmoid colon and rectum. Pt resting comfortably. Nl stoma output. (Stoma permanent, has been in place since 2004). He tells me the FBs have been there for 3 days and comprise coins, a stone, and a marble. He is feeling better after drainage of a large amount of urine but exam shows continuing mild TTP over the lower quadrants. Monica Arambula MD [address] [facility] [address] considering transfer and reviewing imaging. Pt clinical status unchanged Re-Evaluation #2: Re-Evaluation Time: 11:10 Progress Pt accepted to [facility] for removal of FB, accepted ED to ED from Dr Huy BROWN 12:[address] Ch (via zinc furnace charger) for ED to ED EKG/XRAY/CT/US/VASC/MRI CT : Impression I personally interpreted the CT scan, and this shows multiple foreign bodies in the rectum and sigmoid colon. No obstruction Consults/PCP Consults/PCP : Additional Comment 6:00 a.m.: Spoke to KEVIN Menjivar. Discussed the case. She recommends transfer for higher level of care, given possible difficulty in removing objects from the sigmoid colon. Medical Decision Making Additional information obtaine: old records, N/A Findings Reviewed past ER visits for colostomy supply needs Differential Dx:Considerations: Constipation, Diverticular disease, GI hemorrhage, Trauma, intraabdominal Additional Comments The patient presents with lower abdominal pain. His workup shows a distended bladder requiring a catheter. He also has multiple foreign objects in his re ctum and sigmoid colon. Given that he has a disconnected colon and ostomy, he will not be able to pass these objects. GI was consulted as above. Unfortunately, it appears he may require transfer for higher level of care. The patient was signed out at shift change, pending possible transfer. Departure Time of Disposition: 06:11 Disposition: 02 SHORT TERM HOSPITAL Impression: Primary Impression: Urinary retention Additional Impression: Rectal foreign body Condition: Stable Referrals: NO PRIMARY CARE PROVIDER (PCP) Education Educated: Patient Educated regarding: diagnosis, treatment Signature Scribe Signature: na Attestation: JING Brown MD Jun 04, 2025 22:47 CHAD ARAMBULA MD Jun 05, 2025 06:59
[2025-06-04] MEDS ORDERED: iohexol 300mg/ml 100ml inj. ONE ×2 (22:55→23:10)
--- NOTE | 2025-06-05 00:22 | RADIOLOGY REPORT ---
COMPUTERIZED TOMOGRAPHY ABDOMEN AND PELVIS WITHOUT AND WITH CONTRAST REASON FOR EXAM: abd pain, lower abd, put rocks up his rectum COMPARISON: CT CT ABDOMEN PELVIS W/ IV CONTRAST on DOS: 01/22/25 TECHNIQUE: Axial CT images of the abdomen and pelvis were obtained before and after IV contrast administration. 2-D coronal and sagittal reformatted images were provided. Radiation optimization: All CT scans at this facility use at least one of these dose optimization techniques: Automated exposure control mA and/or kV adjustment per patient size (includes targeted exams where dose is matched to clinical indication) or iterative reconstruction. CONTRAST ADMINISTRATION: 100 mL omnipaque 300 intravenously RADIATION DOSE: CTDI: 8.7 mGy DLP: 1210 mGy-cm FINDINGS: There is some endobronchial debris in the dependent right lower lobe. No airspace disease is identified at the visualized lung bases. There is no pleural effusion. There is no pericardial effusion. The spleen is not enlarged. The liver is normal in size and contour. No focal hepatic lesion is identified. The portal vein is patent. No calcified gallstone is identified. The pancreas is grossly unremarkable. The adrenal glands are grossly unremarkable. The kidneys enhance symmetrically. No solid renal mass is identified. There is mild bilateral hydroureteronephrosis, likely secondary to distended bladder. The urinary bladder is severely distended, nearly to the level of the umbilicus. There is no abdominal aortic aneurysm. No pathologic lymphadenopathy is identified by size criteria. There is no pathologic distention of the Small-bowel. The appendix is surgically absent. There is a diverting colostomy in the right upper quadrant. There is small to moderate stool in the transverse and descending colon. There is a 1.7 cm spherical metallic density in the proximal sigmoid colon. There is a 1.8 cm nearly spherical metallic density in the mid sigmoid colon. There is a 1.7 cm nearly spherical metallic density in the upper rectum. There is a 3.2 cm ellipsoid metallic density in the mid rectum. In the lower rectum, there is a stack of 2-4 metallic discs that measure approximately 4.0 cm in diameter and approximately 0.4 cm each in thickness. Two of the discs appear to have several circular perf orations. The prostate is not seen due to severe metallic streak artifact from the foreign body. There is presacral fat stranding. No acute osseous abnormality is identified. IMPRESSION: There are 4 spherical or ellipsoid foreign bodies in the rectum and sigmoid colon measuring up to 3.2 cm in greatest dimension that are consistent with the history of rocks inserted rectally. In the lower rectum, there is a stack of 2-4 metallic discs that measure approximately 4.0 cm in diameter and approximately 0.4 cm each in thickness, some with several circular perforations. There is presacral fat stranding. Evaluation of the rectum for injury is degraded by severe streak artifact from the foreign bodies. Severely distended urinary bladder causing bilateral hydroureteronephrosis. Right upper quadrant diverting colostomy.
[2025-06-05] MEDS: morphine 4 MG/ML inj SYRINge IV ONE (00:30)
[2025-06-05] MEDS: ondansetron/PF 4mg/2ml inj IV ONE (00:30)
[2025-06-05 03:17] LABS: LEUKOCYTE ESTERASE ,URINE NEGATIVE (Neg); NITRITES, URINE NEGATIVE (Neg); OCCULT BLOOD,URINE LARGE (Neg)
[2025-06-05 03:18] LABS: UA COLLECTION TYPE NON-SPECIFIED
[2025-06-05 03:23] LABS: SQUAMOUS EPITHELIAL CELL,UR FEW /LPF (FEW)
[2025-06-05 03:45] VITALS: TEMP 97.8
[2025-06-05 13:45] VITALS: BP 121/70; PULSE 84; RESP 14; O2SAT 97
== END 2025-06-05 14:35 | disposition short-term general hospital (02) ==
LOC: ER 17:28
DX: R33.9 Retention of urine, unspecified (principal); T18.5XXA Foreign body in anus and rectum, initial encounter; F20.9 Schizophrenia, unspecified; Z90.49 Acquired absence of other specified parts of digestive tract; Z93.3 Colostomy status; W44.F9XA Other object of natural or organic material, entering into or through a natural orifice, initial encounter; Y93.89 Activity, other specified; Y92.89 Other specified places as the place of occurrence of the external cause; Y99.8 Other external cause status
CPT/HCPCS: 36415; 51702; 51798; 74018; 74178; 80053; 81001; 83690; 85025; 96374; 96375; 96376; 99285; J2270; J2405; Q9967; A4314; A4340

== ENCOUNTER 2025-06-20 16:07 | Emergency (ER) | payer MEDICAID ==
[~2025-06-20] VITALS: Ht 177.8 cm; Wt 51.0 kg
--- NOTE | 2025-06-20 16:47 | Physician Documentation ---
History of Present Illness ~ Chief Complaint: 5150 Stated Complaint: 5150 Time Seen by MD: 16:19 Primary Medical Doctor: Unknown HPI This 55-year-old male presents to the ED after presenting to a mental health will walk-in facility requesting a place to sleep. He did not present himself with the ostomy which he has been prescribed in place placed him on a 5150 for being gravely disabled and a history of paranoid schizophrenia now presents to the ED Day of Onset: Jun 20, 2025 Medication Reconciliation Allergies: Coded Allergies: No Known Allergies (Unverified , 06/20/25) Scheduled Atorvastatin Calcium (Atorvastatin Calcium), 1 TAB PO DAILY, (Reported) Chlorpromazine Hcl* (Thorazine*), 2.5 TAB PO DAILY, (Reported) Olanzapine (Olanzapine), 1 TAB PO HS, (Reported) Trazodone Hcl (Trazodone Hcl), 1 TAB PO HS, (Reported) Scheduled PRN Olanzapine (Olanzapine), 1 TAB TID PRN for for anxiety/agitation, (Reported) Discontinued Medications Olanzapine (Olanzapine), 1 TAB PO HS Discontinued Reason: Other Past Medical History Past Medical History: *GI/HEPATOBILIARY*, Diverticulitis, Schizophrenia Past Surgical History: colectomy, other Other Past Surgical History: colostomy Alcohol Use: None Drug Use: none Lives In: Homeless Occupation: unemployed Review of Systems All Other Systems at this time: Reviewed and Negative ROS As stated above in the HPI, otherwise all systems are reviewed and negative. Physical Exam Vital Signs: Temperature: 97.1, Source: Temporal, Heart Rate: 70, Respiratory Rate: 18, BP: 109/71, Weight: 51.000 Physical Exam General: Alert, no apparent distress. Cardiovascular: Regular rate and rhythm, no murmurs. Gastrointestinal: Soft, nontender, nondistended. Bowels sounds present. Ostomy Extremities: Normal range of motion, no deformity. Neurologic: Oriented x4. Psychiatric: Normal mood and affect. Skin: Normal color, warm and dry. No edema, no ecchymosis. Progress Results/Orders Results/Orders Vital Signs 06/20/25 06/20/25 06/21/25 06/21/25 16:11 23:29 06:01 08:15 Temp 97.1 98.3 Pulse 70 81 Resp 18 19 18 14 B/P (MAP) 109/71 96/64 (75) Pulse Ox 98 O2 Flow Rate 0 06/21/25 06/21/25 06/22/25 06/22/25 17:30 20:06 01:35 05:54 Temp 99.1 98.0 Pulse 71 74 Resp 17 14 18 17 B/P (MAP) 108/60 (76) 106/62 (77) Pulse Ox 97 97 O2 Flow Rate 0 0 06/22/25 06/22/25 06/22/25 06/23/25 06:28 11:30 18:00 07:30 Pulse 68 Resp 16 16 B/P (MAP) 100/59 (73) Pulse Ox 94 O2 Flow Rate 0 06/23/25 06/23/25 06/23/25 06/23/25 07:51 11:25 18:48 19:40 Temp 97.7 Pulse 99 82 Resp 18 16 B/P (MAP) 91/69 (76) 105/67 (80) Pulse Ox 99 95 O2 Flow Rate 0 0 06/24/25 06/24/25 05:42 08:36 Temp 98.0 Pulse 78 Resp 16 18 B/P (MAP) 99/57 (71) Pulse Ox 97 Laboratory Tests Test 06/20/25 16:39 06/20/25 17:12 06/20/25 19:37 White Blood Count 9.8 Red Blood Count 4.59 L Hemoglobin 13.7 L Hematocrit 39.9 L Mean Corpuscular Volume 87.0 Mean Corpuscular Hemoglobin 29.9 Mean Corpuscular Hemoglobin Concent 34.3 Red Cell Distribution Width 13.2 Platelet Count 503 H Mean Platelet Volume 6.9 L Neutrophils (%) (Auto) 73.9 Lymphocytes (%) (Auto) 13.7 L Monocytes (%) (Auto) 10.3 Eosinophils (%) (Auto) 1.4 Basophils (%) (Auto) 0.7 Neutrophils # (Auto) 7.3 Lymphocytes # (Auto) 1.3 Monocytes # (Auto) 1.0 H Eosinophils # (Auto) 0.1 Basophils # (Auto) 0.1 CBC Comment Sodium Level 145 Potassium Level 3.8 Chloride Level 105 Carbon Dioxide Level 33.6 H Anion Gap 6 L Blood Urea Nitrogen 20 H Creatinine 1.18 H Estimated GFR/1.73 m2 64 BUN/Creatinine Ratio 16.9 Glucose Level 92 Calcium Level 8.6 Albumin 3.2 L Thyroid Stimulating Hormone (TSH) 0.76 Chemistry Comments Ethyl Alcohol Level < 10 SARS-CoV-2 Antigen (Rapid) Negative Urine Specimen Description Voided Urine Color Yellow Urine Clarity Turbid Urine pH 6.0 Urine Specific [place] 1.025 Urine Protein Trace Urine Glucose (UA) Negative Urine Ketones Negative Urine Occult Blood Trace-intact Urine Nitrite Positive H Urine Bilirubin Negative Urine Urobilinogen 0.2 Urine Leukocyte Esterase Moderate H Urine RBC 0-2 Urine WBC 50-100 H Urine WBC Clumps Moderate Urine Squamous Epithelial Cells Few Urine Bacteria 4+ Urine Mucus Many Volume Urine Centrifuged 10 ml Urine Comment Urine Opiates Screen Negative Urine Methadone Screen Negative Urine Fentanyl Screen Negative Urine Barbiturates Screen Negative Urine Phencyclidine Screen Negative Urine Amphetamines Screen Positive Urine Benzodiazepines Screen Negative Urine Cocaine Screen Negative Urine Cannabinoids Screen Negative Drug Screen Comment Medical Decision Making Additional information obtaine: old records Findings He will cleared for mental health evaluation Differential Dx:Considerations: Include: Alcohol abuse, Anxiety, Bipolar disorder, Conversion disorder, Depression, Encephaloathy, Homicidal, Panic disorder, Personality disorder, Schizophrenia, Substance abuse, Suicidal, Other Departure Disposition: 01 HOME / SELF CARE / HOMELESS Impression: Primary Impression: Bipolar affective disorder Additional Impressions: Homeless History of schizophrenia Additional Instructions: Transfer orders for [facility]: At this time there is no evidence of an emergent medical condition that would preclude (admission/transfer) to a psychiatric unit via [facility] protocol for further psychiatric, as well as medical evaluation and treatment. At this time I have no reason to believe that transfer via [facility] protocol would have serious medical compromise in the patient's health. Referrals: NO PRIMARY CARE PROVIDER (PCP) Signature Scribe Signature: j Attestation: Scribed for Saravanan [employer] by Saravanan Verduzco NP . 06/20/25 16:47 Addendum 06/24/2025, 9:00 a.m.: Pt signed out to me as part of their psychiatric ED evaluation. Pt resting well. Vital signs within expected ranges. Brief Physical Examination: Alert and appropriately oriented. No signs of respiratory distress. Able to ambulate and move all extremities. Medical evaluation does not indicate metabolic derangement. Awaiting final disposition. Speaking in full sentences. Easily arousable and interactive. Hemodynamically stable. The patient is currently awaiting Behavioral Health final evaluation and disposition. SARAVANAN SANDY NP Jun 20, 2025 16:47 ELLIE JEAN MD Jun 24, 2025 06:48
[2025-06-20 16:59] LABS: MEAN PLATELET VOLUME 6.9 FL (7.4-10.4); RED CELL DISTRIBUTION WIDTH 13.2 % (11.5-14.5)
[2025-06-20 17:20] LABS: CREATININE 1.18 MG/DL (0.60-1.10); TOTAL CARBON DIOXIDE 33.6 MMOL/L (24-32); eCRCL 50 ML/MIN; eGFR 64 ML/MIN
[2025-06-20 17:33] LABS: ETHANOL < 10 MG/DL (<10)
[2025-06-20] MEDS: OLANZAPINE 5 MG TABLET PO SCH (20:02)
[2025-06-20 20:20] LABS: LEUKOCYTE ESTERASE ,URINE MODERATE (Neg); NITRITES, URINE POSITIVE (Neg); OCCULT BLOOD,URINE TRACE-INTACT (Neg)
[2025-06-20 20:23] LABS: URINE AMPHETAMINE SCREEN POSITIVE (Neg); URINE BARBITUATE SCREEN NEGATIVE (Neg); URINE BENZODIAZEPINES SCREEN NEGATIVE (Neg); URINE CANNABINOID SCREEN NEGATIVE (Neg); URINE COCAINE SCREEN NEGATIVE (Neg); URINE METHADONE SCREEN NEGATIVE (Neg); URINE OPIATE SCREEN NEGATIVE (Neg); URINE PHENCYCLIDINE SCREEN NEGATIVE (Neg)
[2025-06-20 20:40] LABS: UA COLLECTION TYPE VOIDED
[2025-06-20 21:00] LABS: MUCUS STRANDS MANY /LPF (Neg); SQUAMOUS EPITHELIAL CELL,UR FEW /LPF (FEW); WBC CLUMPS,URINE MODERATE /HPF (NEGATIVE)
[2025-06-20] MEDS: OLANZAPINE 5 MG TABLET PO PRN (23:29)
[2025-06-21] MEDS: phenazopyridine 100mg tablet PO ONE (14:28)
[2025-06-26 07:56] VITALS: BP 89/48; PULSE 79; TEMP 98.2; O2SAT 98
[2025-06-26 08:15] VITALS: RESP 16
[2025-06-26] MEDS ORDERED: TRAZ150T78 PO (14:20)
[2025-06-26] MEDS ORDERED: CHLO10TA18 PO (14:20)
[2025-06-26] MEDS ORDERED: OLAN15TA97 PO (14:20)
== END 2025-06-26 15:12 | disposition home or self-care (01) ==
LOC: ER 16:07
DX: F31.9 Bipolar disorder, unspecified (principal); F20.0 Paranoid schizophrenia; Z59.00 Homelessness unspecified; Z90.49 Acquired absence of other specified parts of digestive tract; Z79.899 Other long term (current) drug therapy; Z56.0 Unemployment, unspecified; Z20.822 Contact with and (suspected) exposure to COVID-19
CPT/HCPCS: 36415; 80048; 80305; 80320; 81001; 84443; 85025; 87811; 99285; Q0161; A4421